=== PATIENT | male | born 1950 | race Caucasian/White ===

== ENCOUNTER 2024-01-17 08:26 | Day surgery (SDC) | payer MEDICARE ==
[~2024-01-17] VITALS: Ht 175.3 cm; Wt 81.6 kg
[~2024-01-17 08:26] MED LIST: BAYER ASPIRIN E81 MG PO; FISH OIL1000 M1 PO; VIT C/BIOFLV1000 MG PO; VIT E & A EX; VITAMIN B PO; [UNRECOGNIZED DRUG - OTHER] PO; [UNRECOGNIZED DRUG - OTHER] PO
[2024-01-17] MEDS ORDERED: FAMOTIDINE 10MG/ML 2ML SDV IV ONE (08:28)
[2024-01-17] MEDS ORDERED: ceFAZolin Sodium 2 GM/VIAL SDV ONE (08:29)
[2024-01-17] MEDS ORDERED: LACTATED RINGER'S 1,000 ML IV ONE ×2 (08:29→10:54)
[2024-01-17] MEDS ORDERED: SODIUM CHLORIDE 0.9% 100 ML IV ONE (08:30)
[2024-01-17] MEDS ORDERED: PERCOCET 5/321 COMBO PO (09:50)
[2024-01-17] MEDS ORDERED: KETOROLAC TROMETHAMINE 30 MG/ML SDV ONE (10:52)
[2024-01-17] MEDS ORDERED: ACETAMINOPHEN 100 ML IV ONE (10:53)
[2024-01-17 11:30] VITALS: BP 133/74
[2024-01-17] MEDS ORDERED: LIDOcaine HCl 1% (Local Anesth.) 20 ML VIAL ONE (14:42)
[2024-01-17] MEDS ORDERED: PHENYLEPHRINE HCL 10 MG/ML VIAL IV ONE (16:59)
[2024-01-17] MEDS ORDERED: SUGAMMADEX SODIUM 200 MG/2 ML SDV IV ONE (16:59)
[2024-01-17] MEDS ORDERED: LIDOCAINE HCL 2% 2ML SDV IV ONE (16:59)
[2024-01-17] MEDS ORDERED: ROCURONIUM BROMIDE 10 MG/ML 5ML VIAL IV ONE (16:59)
[2024-01-17] MEDS ORDERED: PROPOFOL 200 MG/20 ML VIAL IV ONE (16:59)
== END 2024-01-17 11:57 | disposition home or self-care (01) ==
LOC: ORM 08:26
PROVIDERS: ATTEND Surgery
PROC: 0WQF0ZZ Repair Abdominal Wall, Open Approach (ICD-10-PCS; principal; 2024-01-17)
DX: K42.9 Umbilical hernia without obstruction or gangrene (principal)
CPT/HCPCS: J0131; J0690